=== PATIENT | male | born 1950 | race Two or more races ===

== ENCOUNTER → 2021-01-18 | Emergency (ER) | payer OTHER ==
[~2021-01-18] VITALS: Ht 177.8 cm; Wt 97.5 kg
[~2021-01-18] MED LIST: CELEBREX100 MG PO; COZAAR100 MG PO; JANUVIA PO; SIMVASTATIN5 MG PO
== END | disposition home or self-care (01) ==
LOC: ER 10:39
DX: S42.294A Other nondisplaced fracture of upper end of right humerus, initial encounter for closed fracture (principal); W06.XXXA Fall from bed, initial encounter; Y93.89 Activity, other specified; Y92.013 Bedroom of single-family (private) house as the place of occurrence of the external cause; Y99.8 Other external cause status